=== PATIENT | female | born 1955 | race Caucasian/White ===

== ENCOUNTER 2025-03-12 08:50 | Emergency (ER) | payer BC, MEDICARE ==
[~2025-03-12] VITALS: Ht 175.3 cm; Wt 5.4 kg
[2025-03-12 10:44] LABS: PLATELET COUNT, AUTOMATED 285 10^3/uL (150-450)
[2025-03-12 11:13] LABS: ALT/SGPT 19 U/L (7.0-40); AST/SGOT 31 U/L (<34); CALCIUM LEVEL 8.5 MG/DL (8.3-10.6); CARBON DIOXIDE LEVEL 30 MMOL/L (20-31); CHLORIDE LEVEL 100 MMOL/L (98-107); CREATININE FOR GFR 0.59 MG/DL (0.55-1.30); GLOMERULAR FILTRATION RATE > 90.0 (>45); POTASSIUM SERUM 4.5 MMOL/L (3.5-5.1); SODIUM LEVEL 142 MMOL/L (136-145)
[2025-03-12] MEDS ORDERED: ISOVUE-370 76% 100 ML VIAL As Ordered ONE (11:34)
[2025-03-12] MEDS: NS (Normal Saline) 0.9% 1,000 ML IV ONE (12:12)
[2025-03-12] MEDS: KETOROLAC 30 MG/ML 1 ML VIAL IV ONE (12:13)
[2025-03-12] MEDS: ONDANSETRON 4MG 2ML VIAL IV ONE (12:13)
[2025-03-12] MEDS: AZITHROMYCIN 250 MG TABLET PO ONE (14:11)
[2025-03-12 14:15] VITALS: BP 123/58
[2025-03-12 14:20] VITALS: O2SAT 99
[2025-03-12] MEDS ORDERED: PROM12.56 PO (14:35)
[2025-03-12] MEDS ORDERED: AZIT500T5 PO (14:35)
[2025-03-12 14:40] VITALS: TEMP 98.7
== END 2025-03-12 14:44 | disposition home or self-care (01) ==
LOC: M ED 08:50
DX: A09 Infectious gastroenteritis and colitis, unspecified (principal); K83.8 Other specified diseases of biliary tract; K86.89 Other specified diseases of pancreas; E11.9 Type 2 diabetes mellitus without complications; E03.9 Hypothyroidism, unspecified; Z79.2 Long term (current) use of antibiotics; Z79.899 Other long term (current) drug therapy
CPT/HCPCS: 74177; 80048; 80076; 83690; 84443; 85027; 87507; 96361; 96374; 96375; 99285; J1885; J2405; J2765; Q9967